=== PATIENT | male | born 1980 | race Caucasian/White ===

== ENCOUNTER 2018-05-25 14:33 | Emergency (ER) | payer MEDICAID | END 2018-05-25 17:42 | disposition home or self-care (01) | LOC: FTE 14:33 | DX: S39.011A Strain of muscle, fascia and tendon of abdomen, initial encounter (principal); X58.XXXA Exposure to other specified factors, initial encounter; Y92.322 Soccer field as the place of occurrence of the external cause | CPT/HCPCS: 76705; 99284-25 ==